=== PATIENT | male | born 1985 | race African-American/Black ===

== ENCOUNTER 2017-01-18 00:33 | Emergency (ER) | payer SELFPAY ==
[~2017-01-18] VITALS: Ht 185.4 cm; Wt 83.9 kg
[2017-01-18 00:41] VITALS: BP 100/54
== END 2017-01-18 01:30 | disposition home or self-care (01) ==
LOC: ER 00:35
DX: S61.213A Laceration without foreign body of left middle finger without damage to nail, initial encounter (principal); W25.XXXA Contact with sharp glass, initial encounter; Y93.89 Activity, other specified; Y92.89 Other specified places as the place of occurrence of the external cause; Y99.8 Other external cause status
CPT/HCPCS: A4606; A6402; Z7610

== ENCOUNTER 2017-01-23 10:46 | Emergency (ER) | payer MEDICAID ==
[~2017-01-23] VITALS: Ht 185.4 cm; Wt 83.9 kg
[2017-01-23 11:02] VITALS: BP 118/70
== END 2017-01-23 11:39 | disposition home or self-care (01) ==
LOC: ER 10:47
DX: S61.213D Laceration without foreign body of left middle finger without damage to nail, subsequent encounter (principal); X58.XXXD Exposure to other specified factors, subsequent encounter; M79.89 Other specified soft tissue disorders
CPT/HCPCS: A4606; Z7502; Z7610